=== PATIENT | female | born 1990 | race American Indian/Alaskan Native ===

== ENCOUNTER 2018-03-12 20:01 | Emergency (ER) | payer OTHER ==
[2018-03-12 20:47] VITALS: BP 107/73; PULSE 84; RESP 14; TEMP 98.1; O2SAT 99
--- NOTE | 2018-03-12 21:40 | C.PDOC ---
History Of Present Illness 27 year old female presents to the ER with a complaint of right knee pain after she tripped and fell while walking today. Patient states the pain is worse with ambulation and notes she also injured her left tibial paez. Denies head injury, LOC, weakness, or numbness. Time Seen by Provider: 03/12/18 20:51 Chief Complaint (Nursing): Lower Extremity Problem/Injury History Per: Patient History/Exam Limitations: no limitations Onset/Duration Of Symptoms: Hrs Current Symptoms Are (Timing): Still Present Recent travel outside of the [place]: No - Knee Description Of Injury: Fell Past Medical History Reviewed: Historical Data, Nursing Documentation, Vital Signs Vital Signs: Last Vital Signs Temp 98.1 F 03/12/18 20:43 Pulse 84 03/12/18 20:43 Resp 14 03/12/18 20:43 BP 107/73 03/12/18 20:43 Pulse Ox 99 03/12/18 20:43 Family History: States: Unknown Family Hx - Social History Hx Tobacco Use: No Hx Alcohol Use: No Hx Substance Use: No - Immunization History Hx Tetanus Toxoid Vaccination: Yes Hx Influenza Vaccination: Yes Hx Pneumococcal Vaccination: Yes Review Of Systems Musculoskeletal: Positive for: Other (Right knee pain) Skin: Positive for: Other (Right knee excoriation) Neurological: Negative for: Weakness, Numbness, Other (LOC) Physical Exam - Physical Exam Appears: Non-toxic Skin: Warm, Dry Head: Atraumatic, Normacephalic Eye(s): bilateral: Normal Inspection Extremity: Normal ROM (x4), Capillary Refill (<2 seconds), Other (Tenderness to medial aspect of right knee, no swelling ecchymosis, or erythema. Very superf icial excoriation to anterior right knee. Left leg normal.) Pulses: Left Dorsalis Pedis: Normal, Right Dorsalis Pedis: Normal Neurological/Psych: Oriented x3, Normal Speech, Normal Motor, Normal Sensation Gait: Steady ED Course And Treatment O2 Sat by Pulse Oximetry: 99 (Room air) Pulse Ox Interpretation: Normal - Other Rad Right knee x-ray X-Ray: Interpreted by Me, Viewed By Me Interpretation: No acute fractures or dislocations. Progress Note: Right knee x-ray ordered, results were negative. Motrin administered. Patient reports improvement of pain, she is resting comfortably in no acute distress, ambulating with steady gait, will place in knee brace for support and discharge home with instructions to follow up with PMD. Disposition Counseled Patient/Family Regarding: Diagnosis, Need For Followup, Rx Given - Disposition Referrals: 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 - Scribe Statement The provider has reviewed the documentation as recorded by the Scribting Siddiqi All medical record entries made by the Queenieibting were at my direction and personally dictated by me. I have reviewed the chart and agree that the record accurately reflects my personal performance of the history, physical exam, medical decision making, and the department course for this patient. I have also personally directed, reviewed, and agree with the discharge instructions and disposition.
--- NOTE | 2018-03-13 07:51 | RAD ---
Date of service: 03/12/2018 PROCEDURE: Right Knee Radiographs. HISTORY: Knee injury COMPARISON: None. FINDINGS: BONES: No fracture. There is 3 x 12 mm focal osteopenia and/or subcortical cyst-anterior tibial tuberosity.. Overlying cortex is intact. Appearance nonspecific. JOINTS: . No osteoarthritis. JOINT EFFUSION: None. OTHER FINDINGS: None. IMPRESSION: No fracture or dislocation is suggested. There is 3 x 12 mm focal osteopenia and/or subcortical cyst along the anterior tibial tuberosity. The overlying cortex is intact. Appearance is nonspecific.
== END 2018-03-12 21:53 | disposition home or self-care (01) ==
LOC: C.ER 20:01
DX: S89.91XA Unspecified injury of right lower leg, initial encounter (principal); W01.0XXA Fall on same level from slipping, tripping and stumbling without subsequent striking against object, initial encounter; Y92.9 Unspecified place or not applicable